=== PATIENT | female | born 1975 | race Caucasian/White ===

== ENCOUNTER 2017-05-28 09:03 | Emergency (ER) | payer BC, MEDICAID ==
[2017-05-28] MEDS ORDERED: Alum Hydroxide/Mag Hydroxide 15 ML, Lidocaine 2% 15 ML PO ONE ×2 (09:37)
--- NOTE | 2017-05-28 09:45 | EDM.PDOC ---
ED HPI GENERAL MEDICAL PROBLEM - General Chief Complaint: Abdominal Pain Stated Complaint: STOMACH Time Seen by Provider: 05/28/17 09:25 Source of Information: Reports: Patient History Limitations: Reports: No Limitations - History of Present Illness INITIAL COMMENTS - FREE TEXT/NARRATIVE: Collette reports burning abdominal pain yesterday pm believed associated with failure to close on some property. Pain was epigastric, with some radiation into the midline and lower abdomen, without nausea, vomiting, or diarrhea. She tried a Pepcid OTC and 3 GasX tabs without relief. There is a [facility] of PUD and GB disease, and she is concerned this may be responsible. abdomen Pain Score (Numeric/FACES): 2 - Related Data Allergies Allergy/AdvReac Type Severity Reaction Status Date / Time penicillin Allergy Hives Verified 05/28/17 09:17 Home Meds: Home Meds NK [No Known Home Meds] 05/28/17 [History] Social & Family History - Tobacco Use Smoking Status *Q: Never Smoker Second Hand Smoke Exposure: No - Recreational Drug Use Recreational Drug Use: No ED ROS GENERAL - Review of Systems Review Of Systems: See Below Constitutional: Reports: No Symptoms HEENT: Reports: No Symptoms Respiratory: Reports: No Symptoms Cardiovascular: Reports: No Symptoms Endocrine: Reports: No Symptoms GI/Abdominal: Reports: Abdominal Pain : Reports: No Symptoms Musculoskeletal: Reports: No Symptoms Skin: Reports: No Symptoms Neurological: Reports: No Symptoms Psychiatric: Reports: No Symptoms Hematologic/Lymphatic: Reports: No Symptoms Immunologic: Reports: No Symptoms ED EXAM, GI/ABD - Physical Exam Exam: See Below Exam Limited By: No Limitations General Appearance: Alert, WD/WN, No Apparent Distress, Anxious Eyes: Bilateral: Normal Appearance, EOMI Ears: Normal External Exam, Normal TMs Nose: Normal Inspection Throat/Mouth: Normal Inspection, Normal Oropharynx Neck: Normal Inspection, Supple, Non-Tender Respiratory/Chest: Lungs Clear, Normal Breath Sounds Cardiovascular: Regular Rate, Rhythm, No Murmur GI/Abdominal: Normal Bowel Sounds, Soft, No Organomegaly, No Distention, No Mass , Tenderness (epigastrium) Back Exam: Normal Inspection Extremities: Normal Inspection, Normal Range of Motion Neurological: Alert, Oriented, CN II-XII Intact, Normal Cognition, Normal Gait, No Motor/Sensory Deficits Psychiatric: Normal Affect, Anxious Skin Exam: Warm, Dry, Intact Lymphatic: No Adenopathy Course - Vital Signs Text/Narrative:: Following assession at the [facility] ED, screening labs were drawn, and I administered a GI cocktail with marked improvement in sxs, and absence of tenderness in the epigastrium. Last Recorded V/S: Last Vital Signs Temp 36.6 C 05/28/17 09:10 Pulse 81 05/28/17 10:00 Resp 22 H 05/28/17 09:10 BP 135/89 05/28/17 10:00 Pulse Ox 98 05/28/17 09:10 - Orders/Labs/Meds Labs: Laboratory Tests 05/28/17 05/28/17 Range/Units 09:50 09:50 WBC 12.9 H (4.5-12.0) X10-3/uL RBC 4.39 (3.23-5.20) x10(6)uL Hgb 13.2 (11.5-15.5) g/dL Hct 37.9 (30.0-51.3) % MCV 86.4 (80-96) fL MCH 30.1 (27.7-33.6) pg MCHC 34.9 (32.2-35.4) g/dL RDW 12.2 (11.5-15.5) % Plt Count 288 (125-369) X10(3)uL MPV 8.2 (7.4-10.4) fL Add Manual Diff Yes Neutrophils % (Manual) 85 H (46-82) % Band Neutrophils % 1 (0-6) % Lymphocytes % (Manual) 12 L (13-37) % Monocytes % (Manual) 2 L (4-12) % Sodium 134 L (135-145) mmol/L Potassium 3.7 (3.5-5.3) mmol/L Chloride 100 (100-110) mmol/L Carbon Dioxide 26 (23-29) mmol/L BUN 13 (5-20) mg/dL Creatinine 0.7 (0.6-1.3) mg/dL Est Cr Clr Drug Dosing TNP Estimated GFR (MDRD) > 60 (>60) BUN/Creatinine Ratio 18.6 (9-20) Glucose 129 H (80-116) mg/dL Calcium 9.2 (8.6-10.2) mg/dL Total Bilirubin 1.5 H (0.1-1.3) mg/dL AST 27 (5-27) IU/L ALT 35 H (14-26) IU/L Alkaline Phosphatase 41 L (56-112) IU/L C-Reactive Protein 0.9 (0.0-1.0) mg/dL Total Protein 7.9 (6.0-8.0) g/dL Albumin 4.5 (3.5-5.2) g/dL Globulin 3.4 g/dL Albumin/Globulin Ratio 1.3 Meds: Medications Discontinued Medications Generic Name Dose Route Start Last Admin Trade Name Pretty PRN Reason Stop Dose Admin Al Hydroxide/Mg Hydroxide 15 0 ml 05/28/17 09:37 05/28/17 09:42 ml/ Lidocaine HCl 15 ml PO 05/28/17 09:38 30 ml ONETIME ONE Administration Departure - Departure Time of Disposition: 10:45 Disposition: Home, Self-Care 01 Condition: Good Clinical Impression: Gastritis Qualifiers: Gastritis type: unspecified gastritis Chronicity: acute Gastritis bleeding: without bleeding Qualified Code(s): K29.00 - Acute gastritis without bleeding - Discharge Information Forms: ED Department Discharge - Problem List & Annotations (1) Gastritis SNOMED Code(s): 4010105 Code(s): K29.70 - GASTRITIS, UNSPECIFIED, WITHOUT BLEEDING Status: Acute Current Visit: Yes Annotation/Comment:: Probable simple gastritis. I suggested PPIs bid for 5-7 days, hydration, avoidance of ASA, NSAIDs or ETOH, and follow up if sxs persist or escalate. Qualifiers: Gastritis type: unspecified gastritis Chronicity: acute Gastritis bleeding: without bleeding Qualified Code(s): K29.00 - Acute gastritis without bleeding - Problem List Review Problem List Initiated/Reviewed/Updated: Yes - Assessment/Plan Plan: Follow up with PCP if needed.
[2017-05-28 10:52] VITALS: BP 120/80
== END 2017-05-28 10:47 | disposition home or self-care (01) ==
LOC: FB.ED 09:03
DX: K29.00 Acute gastritis without bleeding (principal); Z88.0 Allergy status to penicillin
CPT/HCPCS: 36415; 80053; 85025; 86140; 99284; A9270